=== PATIENT | male | born 1985 | race Caucasian/White ===

== ENCOUNTER → 2017-11-22 | Outpatient (CLI) | payer OTHER ==
--- NOTE | 2017-11-22 16:40 | DIAGNOSTIC IMAGING REPORT ---
L KNEE 4 OR MORE CLINICAL HISTORY: Left knee pain and. Posterior lump. COMPARISON: None FINDINGS: Alignment of the left knee is anatomic. Joint spaces are preserved. No fracture or osseous lesion is evident. No joint effusion is identified. IMPRESSION: Unremarkable left knee radiographs. Electronically signed by: Rafita Griffin M.D. 11/22/2017 4:39 PM Dictated Date/Time: 11/22/2017 4:39 PM
== END | disposition home or self-care (01) ==
LOC: C.RDSM 10:10
PROVIDERS: ATTEND Family Medicine
DX: M25.562 Pain in left knee (principal)